=== PATIENT | female | born 1950 | race Caucasian/White ===

== ENCOUNTER 2017-01-02 11:45 | Emergency (ER) | payer OTHER ==
[~2017-01-02] VITALS: Wt 69.0 kg
[~2017-01-02 11:45] MED LIST: CYMBALTA PO; MULTIVITAMINS PO; VITAMINS
[2017-01-02] MEDS ORDERED: AMOXICILLIN/CLAV 875 MG TAB PO ONE (12:30)
[2017-01-02] MEDS ORDERED: DIPHTH/TET/ACEL PERTUSS (ADULT) 0.5 ML VIAL IM* ONE (12:30)
[2017-01-02] MEDS ORDERED: LIDOCAINE 1% (MDV) 20 ML INJ SC ONE (12:30)
[2017-01-02] MEDS: IBUPROFEN 600 MG TAB PO ONE ×2 (12:49→12:59)
[2017-01-02] MEDS ORDERED: IBUP-1542 PO (13:36)
[2017-01-02] MEDS ORDERED: ACET1TAB40 PO (13:36)
[2017-01-02] MEDS ORDERED: AMOX1TAB10 PO (13:36)
--- NOTE | 2017-01-02 13:40 | ERD ---
ER Documentation Chief Complaint Date/Time DATE: 01/02/17 TIME: 13:37 Chief Complaint DOG BITE TO LOWER R LEG HPI This 66-year-old female presents with multiple dog bite or lacerations on her right lower extremity after her dog got into an altercation with her other dog over a tennis ball. She denies any restricted range of motion or weakness. Her tetanus is not up-to-date. ROS All systems reviewed and are negative except as per history of present illness. Medications Home Meds Active Scripts Acetaminophen with Codeine (Acetaminophen-Cod #3 Tablet) 1 Each Tablet, 1 TAB PO Q6H Y for PAIN, #10 TAB Prov:RAFAEL PEÑA MD 01/02/17 Ibuprofen* (Motrin*) 600 Mg Tab, 600 MG PO Q6, #15 TAB Prov:RAFAEL PEÑA MD 01/02/17 Amoxicillin/Potassium Clav (Amox-Clav 875-125 mg Tablet) 875-125 mg Tab, 1 TAB PO BID for 7 Days, #14 TAB Prov:RAFAEL PEÑA MD 01/02/17 Reported Medications [Ear Vitamins] No Conflict Check, DAILY 12/29/13 [Multivitamins] No Conflict Check, 1 TAB PO DAILY 12/29/13 [Cymbalta] No Conflict Check, PO DAILY 12/29/13 Allergies Allergies: Coded Allergies: No Known Allergy (Unverified , 12/29/13) PMhx/Soc History of Surgery: Yes (BLADDER SURGERY) Anesthesia Reaction: Yes ("GETS HYPER") Hx Psychiatric Problems: Yes (ANXIETY) Hx Alcohol Use: No Hx Substance Use: No Hx Tobacco Use: No Physical Exam Vitals Vital Signs Date Time Temp Pulse Resp B/P Pulse Ox O2 Delivery O2 Flow Rate FiO2 01/02/17 11:49 98.0 105 18 130/85 99 Physical Exam Const: [] Alert, [id number]. Head: Atraumatic Eyes: Normal Conjunctiva ENT: Normal External Ears, Nose and Mouth. Neck: Full range of motion..~ No meningismus. Resp: Clear to auscultation bilaterally Cardio: Regular rate and rhythm, no murmurs Abd: Soft, non tender, non distended. Normal bowel sounds Skin: No petechiae or rashes Back: No midline or flank tenderness Ext: No cyanosis, or edema. On the right cobb there is approximately 3 lacerations one is 2 cm. Laceration #2 is 3 cm. The laceration #3 is approximately 4 cm. There is some exposed fat but no appreciable foreign body, bony deformities. Right lower extremity is neurovascular intact. Neur: Awake and alert Psych: Normal Mood and Affect Results 24 hrs Current Medications Medications (Trade) Dose Ordered Sig/Carl Route PRN Reason Start Time Stop Time Status Last Admin Dose Admin Diphtheria/ Tetanus/Acell Pertussis (Adacel) 0.5 ml ONCE ONCE IM* 01/02/17 12:30 01/02/17 12:31 DC 01/02/17 12:50 Amoxicillin/ Clavulanate Potassium (Augmentin) 875 mg ONCE ONCE PO 01/02/17 12:30 01/02/17 12:31 DC 01/02/17 13:03 Ibuprofen (Motrin) 600 mg ONCE ONCE PO 01/02/17 12:30 01/02/17 12:31 DC Lidocaine (Xylocaine 1% (Mdv) 20 ml) 20 ml ONCE ONCE SC 01/02/17 12:30 01/02/17 12:31 DC Procedures/MDM X-ray Tib/Fib 2V Interpreted by me: Bones: [No fracture] Joints: [No dislocation] Foreign body: [None]. Impression-normal tib-fib x-ray of the right Patient was given a tetanus booster, Augmentin 875 mg by mouth ibuprofen 600 mg by mouth. Given the gaping wound and patient request preparation is made for laceration repair. procedure note-the right lower extremity was irrigated copiously with normal saline and Betadine. 8 cc of lidocaine was used for local infiltration. 3, 5, and 3 4-0 Prolene sutures used to reapproximate the wound loosely for hemostasis. Patient was advised this was not a cosmetic closure to allow drainage for prevention of infection. Patient tolerated the procedure well and the wound was dressed. Patient was given crutches with crutch training. Patient will be discharged home with prescription of Augmentin and Tylenol with instructions for wound check in 2 days and suture removal in 10-14 days. She shows return sooner for fevers, redness, new worsening symptoms. Departure Diagnosis: Primary Impression: Laceration Additional Impression: Bite wound Condition: Stable Patient Instructions: Animal Bite, General, Laceration, All Additional Instructions: 2 days wound check in suture removal in 10-14 days. Recheck sooner for fevers, redness, new worsening symptoms. RAFAEL PEÑA MD Jan 02, 2017 13:40
--- NOTE | 2017-01-02 13:41 | RADRPT ---
PROCEDURE: XR right Tibia and Fibula. CLINICAL INDICATION: Dog bite. TECHNIQUE: AP and lateral views of the right tibia and fibula were obtained. COMPARISON: No prior studies are available for comparison. FINDINGS: There is loss wrapped around the right ankle. The bony elements and joint spaces are normal. Ankle mortise is normal. No foreign body is identified. IMPRESSION: 1. No evidence of an acute fractures, subcutaneous emphysema or foreign body. RPTAT:AAJJ Physician Radha Date Time Electronically viewed and signed by Wood Armenta Physician on 01/02/2017 13:41 /
[2017-01-02] MEDS ORDERED: NAPR-260 PO (14:08)
== END 2017-01-02 14:12 | disposition home or self-care (01) ==
LOC: FTE 11:45
DX: S81.811A Laceration without foreign body, right lower leg, initial encounter (principal); W54.0XXA Bitten by dog, initial encounter; Y92.9 Unspecified place or not applicable; Z23 Encounter for immunization
CPT/HCPCS: 12004; 73590; 90471; 90715; Z7502; Z7610

== ENCOUNTER 2019-06-03 21:31 | Emergency (ER) | payer OTHER ==
[~2019-06-03] VITALS: Ht 170.2 cm; Wt 53.3 kg
[~2019-06-03 21:31] MED LIST changes: +ACET1TAB40 PO; +AMOX1TAB10 PO; +NAPR-985 PO
[2019-06-03 21:32] VITALS: Ht 170.2 cm; Wt 53.3 kg
[2019-06-03] MEDS ORDERED: HYDROCODONE/APAP (5/325) TAB PO ONE (23:00)
[2019-06-03] MEDS ORDERED: LIDOCAINE 1% (MDV) 20 ML INJ SC ONE (23:00)
[2019-06-03] MEDS ORDERED: BACITRACIN/POLYMYXIN 28.35 GM OINT TOP ONE (23:00)
[2019-06-03] MEDS ORDERED: AMOXICILLIN/CLAV 875 MG TAB PO ONE (23:00)
[2019-06-04] MEDS ORDERED: ONDANSETRON (ODT) 4 MG TAB ODT ONE (00:02)
[2019-06-04 01:07] VITALS: BP 105/57; PULSE 80; RESP 18
== END 2019-06-04 01:07 | disposition home or self-care (01) ==
LOC: FTE 21:31
DX: S61.411A Laceration without foreign body of right hand, initial encounter (principal); S61.511A Laceration without foreign body of right wrist, initial encounter; S51.811A Laceration without foreign body of right forearm, initial encounter; S61.512A Laceration without foreign body of left wrist, initial encounter; S61.451A Open bite of right hand, initial encounter; W54.0XXA Bitten by dog, initial encounter; Y92.9 Unspecified place or not applicable